=== PATIENT | male | born 1945 | race African-American/Black ===

== ENCOUNTER 2016-09-07 23:32 | Inpatient (IN) | payer OTHER ==
[~2016-09-07] VITALS: Ht 175.3 cm; Wt 80.3 kg
--- NOTE | 2016-09-07 23:48 | NUR ---
DR FOWLER AT BEDSIDE FOR MSE.
--- NOTE | 2016-09-08 00:07 | NUR ---
RECEIVED A 71 YEAR OLD MALE IN ROOM 3 WITH C/O FACIAL SWELLING SINCE WEDNESDAY, 08/05. PT DENIES TAKING NEW MEDICATIONS. PT AAOX4, RESP EVEN AND UNLABORED. WHEEZING NOTED BILATERALLY ON AUSCULATION. RED AND INFLAMED NOTED TO THE FACE. PT GRANDDAUGTHER AT BEDSIDE, CALL LIGHT WITHIN REACH, BRIAN CONTINUE TO MONITOR.
[2016-09-08 00:21] LABS: PLATELET COUNT 179 x10^3mcL (130-400); RED CELL DISTRIBUTION WIDTH 13.8 % (11.5-14.5)
[2016-09-08 00:24] LABS: BASOPHIL % 2.3 % (0-2)
[2016-09-08 00:26] LABS: CALCIUM 8.4 mg/dL (8.5-10.1); CARBON DIOXIDE 31.6 mmol/L (21-32); CREATININE SERUM 1.3 mg/dL (0.7-1.3); POTASSIUM SERUM 3.5 mmol/L (3.5-5.1)
[2016-09-08 00:31] LABS: ALBUMIN 3.5 g/dL (3.4-5.0); BILIRUBIN TOTAL 0.9 mg/dL (0.20-1.00); TOTAL PROTEIN, SERUM 7.3 g/dL (6.4-8.2)
--- NOTE | 2016-09-08 01:22 | NUR ---
BEDSIDE WITH PATIENT. REDNESS AND SWELLING TO FACE HAS DECREASED. PT ADMITS TO FEELING A LITTLE BIT BETTER. DR FOWLER AT PT BEDSIDE EXPLAINS DESIRE FOR PT TO STAY OVERNIGHT AT THE HOSPITAL FOR CLOSE MONITORING. PT VERBALIZES UNDERSTANDING AND CONSENT TO STAY.
[2016-09-08] MEDS ORDERED: SINEMET 25-1001 TAB (02:03)
--- NOTE | 2016-09-08 02:05 | NUR ---
PT ON GURNEY ASLEEP, RESP EVEN AND UNLABORED. VISIBLE CHEST RISE AND FALL. ON FULL CM. CALL LIGHT WITHIN REACH, WILL CONTINUE TO MONITOR.
--- NOTE | 2016-09-08 02:59 | NUR ---
REPORT GIVEN TO MENG MCMAHON TO ASSUME CARE.
[2016-09-08] MEDS ORDERED: FUROSEMIDE40 MG PO (03:07)
[2016-09-08] MEDS ORDERED: POTASSIUM CHLO10 ME5 PO (03:08)
[2016-09-08] MEDS ORDERED: TAMSULOSIN HYD0.4 M1 PO (03:09)
[2016-09-08] MEDS ORDERED: OMEPRAZOLE20 M4 PO (03:09)
[2016-09-08] MEDS ORDERED: OXYBUTYNIN CHLOR5 MG PO (03:09)
[2016-09-08] MEDS ORDERED: APAP/HYDROCODON1 T11 PO (03:10)
[2016-09-08] MEDS ORDERED: MAGNESIUM OXID400 MG PO (03:11)
[2016-09-08] MEDS ORDERED: METOPROLOL TART25 M1 PO (03:12)
[2016-09-08] MEDS ORDERED: CLARITIN10 MG PO (03:12)
[2016-09-08 03:27] VITALS: BP 150/83
--- NOTE | 2016-09-08 03:42 | NUR ---
RECEIVED PT FROM ED IN NO ACUTE DISTRESS. A/OX4. FACIAL SWELLING AND REDNESS NOTED. MUMBLED SPEECH DUE TO SWELLING. DENIES ANY DIFFICULTY BREATHING. DENIES SOB. BREATHING EVEN AND UNLABORED. REPORTS MILD PAIN TO BLE DUE TO SWELLING. +3 EDEMA TO BLE. PULSES PALPABLE AND MODERATE. IV INTACT AND PATENT TO L HAND. PLACED ON TELE #[id number]. SR 70. DENIES CHEST PAIN OR DISCOMFORT. AMBULATES WITH SLOW STEADY GAIT. ORIENTED PT TO ROOM AND SURROUNDINGS. CALL LIGHT INSTRUCTIONS GIVEN. WILL CONT TO MONITOR.
[2016-09-08 03:54] LABS: CHOLESTEROL/HDL RATIO 3.3
[2016-09-08 04:01] LABS: FREE T4 1.18 ng/dL (0.76-1.46); FREE THYROXINE INDEX 2.9 ug/dL (1.4-4.5); T4(THYROXINE) 8.9 ug/dL (4.7-13.3)
--- NOTE | 2016-09-08 05:17 | NUR ---
LAYING IN BED WITH NO ACUTE DISTRESS. BREATHING EVEN AND UNLABORED. IV INTACT AND PATENT. CALL LIGHT WITHIN REACH. WILL CONT TO MONITOR AND ENDORSE ALL CARE TO ONCOMING NURSE.
--- NOTE | 2016-09-08 08:30 | NUR ---
DR DELEON, RESIDENT TEAM, CHARGE NURSE, AND MYSELF AT BEDSIDE TO DISCUSS PLAN OF CARE WITH PATIENT. PLAN FOR POSSIBLE DISCHARGE TOMORROW. PT AWARE AND AGREEABLE.
[2016-09-08 10:00] VITALS: BP 121/83
--- NOTE | 2016-09-08 11:29 | NUR ---
PT RESTING IN BED, HAS NO PAIN OR DISCOMFORT AT THIS TIME, DID ELEVATE BOTH LEGS ON TWO PILLOWS DUE TO +4 EDEMA, CALL LIGHT IN REACH, WILL CONTINUE TO MONITOR PT. .
--- NOTE | 2016-09-08 12:41 | NUR ---
PT SITTING UP IN CHAIR, TOLERATED PERICARE WELL, CHANGED TO CLEAN GLOWN, IS HAVING LUNCH NOW, CALL LIGHT IN REACH, ADVICE TO CALL NURSE WHEN HE IS READY TO LAY BACK IN BED. WILL CONTINUE TO MONITOR.
[2016-09-08 13:31] VITALS: BP 126/65
[2016-09-08 14:36] LABS: microscopic required? YES; urine erythrocyte TRACE (NEGATIVE)
--- NOTE | 2016-09-08 14:56 | NUR ---
DR HARDY MADE AWARE UA +
--- NOTE | 2016-09-08 15:00 | NUR ---
PT SITTING UP IN CHAIR WATCHING T.V. ASSISTED TO A STANDING POSITION AND HELPED HOLDING THE URINAL AND BACK TO A SITTING POSTION, TOLERATED WELL. GAVE 1400 MEDS, UA CAME BACK +, AWAITING ORDER FROM DOCTOR. CALL LIGHT IN REACH, WILL CONTINUE TO MONITOR.
--- NOTE | 2016-09-08 16:58 | NUR ---
PT LAYING IN BED RESTING, NO PAIN AT THIS TIME, ADMINISTERD 1600 MED, TOLERATED WELL, ASSISTED WITH URINAL, CALL LIGHTIN REACH, WILL CONTINUE TO MONITOR.
[2016-09-08 17:24] VITALS: BP 152/79
--- NOTE | 2016-09-08 17:43 | NUR ---
PT SITTING UP IN BED EATING DINNER , DENIES ANY PAIN AT THIS TIME, CALL LIGHT IN REACH, WILL ENDORSE PT TO INCOMING NURSE.
--- NOTE | 2016-09-08 18:44 | NUR ---
PT TOLERATED DINNER WELL, NO DISCOMFORT, N/V NOTED , DENIES PAIN AT THIS TIME. RESTING IN BED, CALL LIGHT IN REACH.
[2016-09-08 18:48] VITALS: Ht 175.3 cm; Wt 80.3 kg
--- NOTE | 2016-09-08 20:11 | NUR ---
AWAKE AND ALERT, ORIENTED TO NAME, PLACE, TIME AND SITUATION. SPEECH CLEAR AND APPROPRIATE. HOB ELEVATED 30 DEG. UPPER SIDE RAILS IN RAISED POSITION, CALL LIGHT WITHIN EASY REACH. BED ALARM ON. DENIES HAVING PAIN. BREATHING EVEN AND UNLABORED ON ROOM AIR. REDNESS AND SWELLING TO FACE. SPEECH IS SLURRED. DROOP NOTED TO LEFT SIDE OF MOUTH. MILL ORDER SCHEDULER STRONG AND EQUAL. HX OF PARKINSONS DISEASE. IVF OF NS AT 90ML/HR.
[2016-09-08 21:13] VITALS: BP 112/62
--- NOTE | 2016-09-09 | NUR ---
EYES CLOSED, BREATHING EVEN AND UNLABORED ON ROOM AIR. CALL LIGHT WITHIN EASY REACH. HOB KEPT ELEVATED 4O DEG.
[2016-09-09 05:37] VITALS: BP 144/66
--- NOTE | 2016-09-09 06:22 | NUR ---
EYES CLOSED, EASILY AWAKENED. BREATHING EVEN AND UNLABORED ON ROOM AIR. IVF OF NS AT 90ML/HR. HOB KEPT ELEVATED 30 DEG. BED BATH AND ORAL CARE EARLIER DONE.
[2016-09-09 06:24] LABS: BASOPHIL % 0.2 % (0-2); PLATELET COUNT 168 x10^3mcL (130-400); RED CELL DISTRIBUTION WIDTH 13.2 % (11.5-14.5)
[2016-09-09 06:32] LABS: CALCIUM 8.3 mg/dL (8.5-10.1); CARBON DIOXIDE 27.6 mmol/L (21-32); CHLORIDE SERUM 105 mmol/L (98-107); CREATININE SERUM 1.1 mg/dL (0.7-1.3); GFR1 > 60 mL/min; GLUCOSE SERUM 129 mg/dL (74-106); MAGNESIUM 1.8 mg/dL (1.8-2.4); PHOSPHOROUS 3.1 mg/dL (2.5-4.9); POTASSIUM SERUM 3.9 mmol/L (3.5-5.1); SODIUM SERUM 140 mmol/L (136-145)
--- NOTE | 2016-09-09 07:15 | NUR ---
AAO X4.DENIES ANY PAIN/DISCOMFORT.LUNGS CLEAR.ON SR ON THE MONITOR.IVF NS GOING AT 90 ML/HR INFUSING WELL.BILAT FACIAL REDNESS AND SWELLING NOTED.BUE WITH TRACE EDEMA AND BLE WITH 3+ EDEMA.CALL LIGHT WITHIN REACH INSTRUCTED TO CALL FOR ANY PAIN/DISOCMFORT.WILL CONTINUE TO MONITOR.
--- NOTE | 2016-09-09 08:21 | NUR ---
PANCHO BENJAMIN AND MEDICINE TEAM AT BEDSIDE.INFORMED PT THAT HE WILL GO HOME TODAY.PT COOPERATIVE WITH THE PLAN OF CARE.
[2016-09-09 10:02] VITALS: BP 151/77
[2016-09-09 10:31] LABS: T3 TOTAL 1.01 ng/mL
[2016-09-09] MEDS ORDERED: BACTRIM DS1 TAB PO (13:23)
[2016-09-09] MEDS ORDERED: MEDDP PO (13:23)
[2016-09-09 13:24] VITALS: BP 151/77
[2016-09-09] MEDS ORDERED: BENADRYL ALLERG25 M1 PO (13:51)
--- NOTE | 2016-09-09 14:10 | NUR ---
PT D/C TO HOME IV AND MONITOR D/C'D.RX HAS BEEN CALLED BY PHYSICIAN IN [facility] .[facility].D/C INSTRUCTION GIVEN.PT VERBALIZES UNDERSTANDING.WENT DOWN VIA WHEELCHAIR ACCOMPANIED BY FIXED INCOME DIRECTOR AND FAMILY.
== END 2016-09-09 14:10 | disposition home or self-care (01) | DRG 916 ==
LOC: ED 23:32 → DU 09-08 02:46
PROVIDERS: Emergency Medicine; ADMIT Family Medicine
DX: T78.3XXA Angioneurotic edema, initial encounter (principal); N39.0 Urinary tract infection, site not specified; D68.69 Other thrombophilia; T42.8X5A Adverse effect of antiparkinsonism drugs and other central muscle-tone depressants, initial encounter; B96.20 Unspecified Escherichia coli [E. coli] as the cause of diseases classified elsewhere; G20 Parkinson's disease; L85.3 Xerosis cutis; I10 Essential (primary) hypertension; E11.59 Type 2 diabetes mellitus with other circulatory complications; N40.1 Benign prostatic hyperplasia with lower urinary tract symptoms; N39.498 Other specified urinary incontinence; R35.0 Frequency of micturition; D64.9 Anemia, unspecified; M19.90 Unspecified osteoarthritis, unspecified site; E78.5 Hyperlipidemia, unspecified; Z68.26 Body mass index [BMI] 26.0-26.9, adult; Z86.010 Personal history of colon polyps; Y92.009 Unspecified place in unspecified non-institutional (private) residence as the place of occurrence of the external cause
CPT/HCPCS: 83880; 84439; J0171; J0696; J1200; J2920; J2930; J7030; J7613; Q0092